=== PATIENT | female | born 1960 | race Caucasian/White ===

== ENCOUNTER 2016-08-20 08:58 | Emergency (ER) | payer OTHER ==
[~2016-08-20] VITALS: Ht 152.4 cm; Wt 60.9 kg
[2016-08-20] MEDS ORDERED: ASPIRIN 81 MG TAB PO STA (09:05)
[2016-08-20 09:10] VITALS: TEMP 98.2; Ht 152.4 cm; Wt 60.9 kg
--- NOTE | 2016-08-20 09:19 | ERD ---
ER Documentation Chief Complaint Date/Time DATE: 08/20/16 TIME: 09:16 Chief Complaint HPI Patient is a 56-year-old female who reports chest pain since 6:00 this morning. She has seen her primary care physician for this chest pain which is apparently been occurring over the last 3 months. She states that she had an EKG and chest x-ray and blood work done that were all within normal limits. She was apparently prescribed an antidepressant and something for anxiety which she says she did not take. She says her primary care physician felt like it was probably depression and anxiety because she lost a significantly close family member for him she been caring for and that was when the chest pain began. She describes the chest pain as a heaviness in the center of her chest. It is worse when she takes a deep breath or moves. She denies any chest trauma, fever, coughing, congestion, rhinorrhea, sore throat, or otalgia. She denies any nausea, vomiting, diarrhea, dysuria, hematuria, flank pain, or back pain. She denies any swelling of her lower extremities, traveling long distances, recent antibiotic exposure. In the remainder of the systems are negative. ROS All systems reviewed and are negative except as per history of present illness. Medications Home Meds No Active Prescriptions or Reported Meds Allergies Allergies: Coded Allergies: No Known Allergy (Unverified , 08/20/16) FmHx Family History: No diabetes Physical Exam Vitals Vital Signs Date Time Temp Pulse Resp B/P Pulse Ox O2 Delivery O2 Flow Rate FiO2 08/20/16 12:18 54 12 132/80 98 Room Air 08/20/16 09:10 98.2 66 10 143/76 94 Room Air 08/20/16 09:10 98.2 66 10 143/76 94 Physical Exam Const: [] Well-developed well-nourished female on the bed tearful Head: Atraumatic normocephalic Eyes: Normal Conjunctiva ENT: Normal External Ears, Nose and Mouth. Neck: Full range of motion..~ No meningismus. Resp: Clear to auscultation bilaterally Cardio: Regular rate and rhythm, no murmurs,no rubs, no gallops, no tenderness palpation in the anterior chest wall Abd: Soft, non tender, non distended. Normal bowel sounds Skin: No petechiae or rashes Back: No midline or flank tenderness Ext: No cyanosis, or edema, no calf tenderness to palpation, negative Homans sign Neur: Awake and alert, oriented 3, GCS of 15, moves all extremities equally , nonfocal Psych: Tearful with depressed affect Result Diagram: 08/20/1692008/20/1621 Results 24 hrs Laboratory Tests Test 08/20/16 09:21 08/20/16 09:27 Activated Partial Thromboplast Time 29.6Sec Alanine Aminotransferase (ALT/SGPT) 22IU/L Albumin 4.3g/dl Albumin/Globulin Ratio 1.16 Alkaline Phosphatase 67IU/L Anion Gap 20 Aspartate Amino Transf (AST/SGOT) 26IU/L Basophils # 0.010^3/ul Basophils % 0.3% Blood Urea Nitrogen 11mg/dl Calcium Level 9.6mg/dl Carbon Dioxide Level 25mmol/L Chloride Level 103mmol/L Creatinine 0.45mg/dl D-Dimer 506.76ng/ml D-Dimer Comment Direct Bilirubin 0.00mg/dl Eosinophils # 0.110^3/ul Eosinophils % 1.7% Globulin 3.70g/dl Glucose Level 108mg/dl Hematocrit 39.2% Hemoglobin 12.9g/dl INR International Normalized Ratio 1.08 Indirect Bilirubin 0.4mg/dl Lymphocytes # 1.110^3/ul Lymphocytes % 31.9% Mean Corpuscular Hemoglobin 30.3pg Mean Corpuscular Hemoglobin Concent 32.9g/dl Mean Corpuscular Volume 92.0fl Mean Platelet Volume 13.2fl Monocytes # 0.410^3/ul Monocytes % 11.5% Neutrophils # 1.910^3/ul Neutrophils % 54.3% Nucleated Red Blood Cells # 0.010^3/ul Nucleated Red Blood Cells % 0.0/100WBC Platelet Count 22720^3/UL Potassium Level 3.5mmol/L Prothrombin Time 14.0Sec Prothrombin Time Ratio 1.1 Red Blood Count 4.2610^6/ul Red Cell Distribution Width 12.7% Sodium Level 144mmol/L Total Bilirubin 0.4mg/dl Total Protein 8.0g/dl Troponin I < 0.012ng/ml White Blood Count 3.610^3/ul Urine Bilirubin NEGATIVE Urine Clarity CLEAR Urine Color LT. YELLOW Urine Glucose NEGATIVE% Urine Hemoglobin NEGATIVE Urine Ketones NEGATIVE Urine Leukocyte Esterase 2+ Urine Microscopic RBC >200/HPF Urine Microscopic WBC 5-10/HPF Urine Nitrite NEGATIVE Urine Specific [place] <=1.005 Urine Squamous Epithelial Cells FEW Urine Total Protein NEGATIVE Urine Urobilinogen 0.2 E.U./dL Urine pH 6.5 Current Medications Medications (Trade) Dose Ordered Sig/Madiha Route PRN Reason Start Time Stop Time Status Last Admin Dose Admin Aspirin (Aspirin) 162 mg ONCE STAT PO 08/20/16 09:05 08/20/16 09:17 DC 08/20/16 09:40 Diazepam (Valium) 5 mg ONCE ONCE IV 08/20/16 09:30 08/20/16 09:31 DC 08/20/16 09:40 IV Flush 10 ml 10 ml STK-MED ONCE .ROUTE 08/20/16 12:30 08/20/16 12:31 DC 08/20/16 12:55 Sodium Chloride 100 ml @ ud STK-MED ONCE .ROUTE 08/20/16 12:30 08/20/16 12:31 DC 08/20/16 12:55 Iohexol (Omnipaque) 100 ml @ ud STK-MED ONCE .ROUTE 08/20/16 12:30 08/20/16 12:31 DC 08/20/16 12:56 Iohexol (Omnipaque 350mg/ ml) 50 ml STK-MED ONCE .ROUTE 08/20/16 12:30 08/20/16 12:31 DC 08/20/16 12:56 Procedures/MDM Differential includes chest wall pain, nonspecific chest pain, angina, pulmonary embolus, chest pain in response to emotional stress EKG: Rate/Rhythm: Normal Sinus Rhythm at 65 bpm without any evidence of acute ischemia, arrhythmia or ectopy noted, no old EKG available for comparison , no PE pattern noted QRS, ST, T-waves: No changes consistent w/ acute ischemia Impression: No evidence of ischemia or arrhythmia Chest x-ray did not reveal any acute cardiopulmonary process per the radiologist D-dimer was slightly elevated so it CTA of the chest was ordered and performed. The CT of the chest does not reveal any evidence of pulmonary embolus nor does it reveal any evidence of any other acute cardiopulmonary process that would explain the patient's chest pain. 1320: Patient is stable for discharge home. She may follow-up with her primary care physician as an outpatient for any further evaluation or treatment is needed for her chest pain. Departure Diagnosis: Primary Impression: Chest pain Chest pain type: chest pain on breathing Qualified Code: R07.1 - Chest pain on breathing Condition: Good Patient Instructions: Chest Pain, Uncertain Cause Additional Instructions: Please see your primary care physician as an outpatient for any further evaluation of your chest pain. I would recommend that he go ahead and start the medications that were previously prescribed to you. Return to the emergency department for any new or worsening symptoms for MARIEL JOSE Aug 20, 2016 09:19
[2016-08-20] MEDS ORDERED: DIAZEPAM 5 MG/ML SYG IV ONE (09:30)
[2016-08-20 09:37] LABS: ADD SCAN DIFF NO
[2016-08-20 09:41] LABS: ADD UMIC YES; URINE BILIRUBIN (Dip) NEGATIVE (NEGATIVE); URINE BLOOD (Dip) NEGATIVE (NEGATIVE); URINE COLOR LT. YELLOW (YELLOW); URINE GLUCOSE (Dip) NEGATIVE (NEGATIVE); URINE KETONES (Dip) NEGATIVE (NEGATIVE); URINE LEUKOCYTE ESTERASE (Dip) 2+ (NEGATIVE); URINE NITRITE (Dip) NEGATIVE (NEGATIVE); URINE TOTAL PROTEIN (Dip) NEGATIVE (NEGATIVE); URINE UROBILINOGEN (Dip) 0.2 E.U./dL (0.1-1.0)
[2016-08-20 09:47] LABS: BASOPHILS % 0.3 % (0.0-2.0); EOSINOPHILS # 0.1 10^3/ul (0.0-0.5); EOSINOPHILS % 1.7 % (0.0-7.0); HEMATOCRIT 39.2 % (37.0-47.0); HEMOGLOBIN 12.9 g/dl (12.0-16.0); LYMPHOCYTES # 1.1 10^3/ul (0.8-2.9); LYMPHOCYTES % 31.9 % (15.0-51.0); MEAN CORPUSCULAR HEMOGLOBIN 30.3 pg (29.0-33.0); MEAN CORPUSCULAR HGB CONC 32.9 g/dl (32.0-37.0); MEAN PLATELET VOLUME 13.2 fl (7.4-10.4); MONOCYTE # 0.4 10^3/ul (0.3-0.9); MONOCYTES % 11.5 % (0.0-11.0); NEUTROPHIL # 1.9 10^3/ul (1.6-7.5); NEUTROPHILS % 54.3 % (39.0-77.0); PLATELET COUNT 189 10^3/UL (140-415); RED BLOOD COUNT 4.26 10^6/ul (4.20-5.40); RED CELL DISTRIBUTION WIDTH 12.7 % (11.5-14.5); WHITE BLOOD COUNT 3.6 10^3/ul (4.8-10.8)
[2016-08-20 09:49] LABS: INR 1.08; PT RATIO 1.1
[2016-08-20 09:50] LABS: PARTIAL THROMBOPLASTIN TIME 29.6 Sec (25.0-35.0)
[2016-08-20 09:51] LABS: ALBUMIN 4.3 g/dl (3.3-4.9); CHLORIDE 103 mmol/L (97-110); POTASSIUM 3.5 mmol/L (3.5-5.1); SODIUM 144 mmol/L (135-144)
[2016-08-20 09:52] LABS: D-DIMER 506.76 ng/ml (<460)
[2016-08-20 09:54] LABS: ALANINE AMINOTRANSFERASE 22 IU/L (13-69); ALBUMIN/GLOBULIN RATIO 1.16; ALKALINE PHOSPHATASE 67 IU/L (42-121); ANION GAP 20 (8-16); ASPARTATE AMINO TRANSFERASE 26 IU/L (15-46); BILIRUBIN,INDIRECT 0.4 mg/dl (0-1.1); BILIRUBIN,TOTAL 0.4 mg/dl (0.2-1.3); BLOOD UREA NITROGEN 11 mg/dl (7-20); CALCIUM 9.6 mg/dl (8.4-10.2); CARBON DIOXIDE 25 mmol/L (21-31); CREATININE 0.45 mg/dl (0.44-1.00); GLUCOSE 108 mg/dl (70-220)
[2016-08-20 10:02] LABS: SQUAMOUS EPITHELIAL CELL,UR FEW; URINE RBCS >200 /HPF (0)
--- NOTE | 2016-08-20 10:08 | RADRPT ---
PROCEDURE: Chest Radiograph. CLINICAL INDICATION: Chest pain TECHNIQUE: Single frontal chest radiograph. COMPARISON: None available FINDINGS: The cardiomediastinal silhouette is within normal limits. There is mild bibasilar atelectasis. No i nfiltrate or effusion is seen. The bones are intact. IMPRESSION: 1. Mild bibasilar atelectasis. 2. Otherwise unremarkable chest radiograph. RPTAT: KK .Adam Kitchen MD, MD Date Time Electronically viewed and signed by .Adam Kitchen MD, on 08/20/2016 10:08 .B/
[2016-08-20 10:17] LABS: TROPONIN-I < 0.012 ng/ml (0.00-0.12)
[2016-08-20] MEDS ORDERED: SOD CHLORIDE 0.9% 100 ML ONE (12:30)
[2016-08-20] MEDS ORDERED: IOHEXOL 100 ML ONE (12:30)
[2016-08-20] MEDS ORDERED: IOHEXOL 350MG/ML 50 ML BTL ONE (12:30)
--- NOTE | 2016-08-20 13:21 | RADRPT ---
PROCEDURE: CTA Chest. CLINICAL INDICATION: chest pain with elevated d-dimer TECHNIQUE: The study was performed utilizing a multidetector CT scanner. Direct spiral 1 mm axial sections were obtained from the thoracic inlet to the upper abdomen with the use of 100 cc of Omnipa que 350 nonionic intravenous contrast material and reformatted at 3 mm. Coronal reformations were ob tained. The images were reviewed on a PACS workstation. CT D I 14 mCi. Dose 358 mCi per centimeter COMPARISON: No prior studies are available for comparison. FINDINGS: The aorta is without aneurysmal dilatation or dissection. There are small lymph nodes seen within th e mediastinum which are not pathologic by size criteria. The central pulmonary arteries are without evidence for filling defect to suggest pulmonary embolus or thrombus. There is no evidence for an in filtrate. No abnormal soft tissue masses or nodular densities are visualized. The osseous structures are unremarkable. Scans through the upper abdomen reveals that the upper liver is unremarkable. The adrenal glands have a normal appearance. The upper kidneys are functional and are without evidence for obstruction. IMPRESSION: No CT evidence for pulmonary embolus. .Eligio Christian MD, MD Date Time Electronically viewed and signed by .Eligio Christian MD, on 08/20/2016 13:20 .A/
[2016-08-20] MEDS ORDERED: TRAM50TA2 PO (13:25)
[2016-08-20] MEDS ORDERED: ASPI81TA3 PO (13:25)
[2016-08-20 13:48] VITALS: BP 131/74; PULSE 60; RESP 16
== END 2016-08-20 13:47 | disposition home or self-care (01) ==
LOC: E/R 08:58
DX: R07.1 Chest pain on breathing (principal); R40.2252 Coma scale, best verbal response, oriented, at arrival to emergency department; R40.2142 Coma scale, eyes open, spontaneous, at arrival to emergency department; R40.2362 Coma scale, best motor response, obeys commands, at arrival to emergency department
CPT/HCPCS: 36415; 71010; 71275; 80053; 81001; 84484; 85025; 85378; 85610; 85730; 93005; 96374; 99285; J3360; Q9967; 81003